=== PATIENT | male | born 1955 | race Caucasian/White ===

== ENCOUNTER 2024-07-05 11:50 | Outpatient (REF) | payer OTHER, SELFPAY ==
[2024-07-05 13:45] LABS: Basophils Percent Auto 0.1 % (0-2); Hematocrit 38.5 % (42.0-52.0); Hemoglobin 13.2 g/dl (14.0-18.0); Imm Gran Abs Auto 0.19 X10*3/uL (0.00-0.03); Imm Gran Pct Auto 1.2 % (0.0-0.4); Lymphocytes Absolute Auto 0.4 X10*3/uL (1.2-4.9); Lymphocytes Percent Auto 2.7 % (20-40); MANUAL DIFF FLAG SCAN; Mean Corpuscular HGB Conc 34.3 g/dl (31.0-36.0); Mean Corpuscular Hemoglobin 31.2 pg (27.0-33.0); Mean Platelet Volume 9.2 fL (9.4-12.4); Monocytes Absolute Auto 0.3 X10*3/uL (0.1-1.2); Monocytes Percent Auto 2.2 % (2-11); Neutrophils Absolute Auto 14.4 x10*3/uL (2.0-8.3); Neutrophils Percent Auto 93.8 % (45-73); Platelet Count 391 X10*3/uL (160-400); Red Blood Count 4.23 X10*6/uL (4.60-5.80); Red Cell Distribution Width 12.6 % (11.0-16.0); SCAN SMEAR FLAG 1; White Blood Count 15.3 X10*3/uL (4.8-10.8)
[2024-07-05 14:11] LABS: Alanine Aminotransferase 17 U/L (0-40); Albumin Level 4.4 g/dL (3.5-5.0); Alkaline Phosphatase 42 U/L (39-117); Anion Gap 14 (12-20); Aspartate Amino Transferase 15 U/L (5-37); Bilirubin Total 0.7 mg/dL (0.0-1.0); Blood Urea Nitrogen 21 mg/dL (9-16); C Reactive Protein 0.28 mg/dL (< or = 0.50); Calcium 9.5 mg/dL (8.4-10.2); Carbon Dioxide 25 mmol/L (22-29); Chloride 97 mmol/L (96-108); Estimated Glomerular Filt Rate 58; Glucose Random 178 mg/dL (60-115); Potassium 4.4 mmol/L (3.3-5.1); Rheumatoid Factor < 13.0 IU/mL (<15.0); Sodium 132 mmol/L (135-145)
[2024-07-05 14:28] LABS: Erythrocyte Sedimentation Rate 5 MM/HR (0-15)
[2024-07-05 14:30] LABS: Thyroid Stimulating Hormone 0.36 uIU/mL (0.32-4.0)
[2024-07-05 14:45] LABS: SLIDE REVIEW VERIFIED
[2024-07-06 12:48] LABS: Lyme Abs Screen <0.90 index
[2024-07-07 19:08] LABS: Immunoglobulin E 532 kU/L (<OR=114)
[2024-07-10 12:53] LABS: A. Phagocytophilum Ab IgG <1:64 (<1:64); A. Phagocytophilum Ab IgM <1:20 (<1:20); E. Chaffeensis Ab IgG <1:64 (<1:64); E. Chaffeensis Ab IgM <1:20 (<1:20)
[2024-07-13 10:02] LABS: ANA Pattern 2 Nuclear, Nucleolar; Anti Nuclear Antibody Pattern Nuclear, Homogeneous; Anti Nuclear Antibody Screen POSITIVE (NEGATIVE); Anti Nuclear Antibody Titer 1:40 titer
== END 2024-07-05 11:51 | disposition home or self-care (01) ==
LOC: HO.MANLDS 11:50
PROVIDERS: Visit Provider Physician Assistant
DX: L28.2 Other prurigo (principal); W61.99XA Other contact with other birds, initial encounter
CPT/HCPCS: 36415; 80053; 82785; 84439; 84443; 85025; 85652; 86038; 86039; 86140; 86431; 86617; 86618; 86666; 87070; 87205

== ENCOUNTER 2024-07-06 09:32 | Outpatient (REF) | payer MEDICARE, SELFPAY ==
[2024-07-14 16:33] LABS: Histamine Plasma <1.5 ng/mL (< OR = 1.8)
== END 2024-07-06 09:33 | disposition home or self-care (01) ==
LOC: HO.LAB 09:32
PROVIDERS: PCP Internal Medicine; Visit Provider Physician Assistant
DX: L28.2 Other prurigo (principal); W61.99XA Other contact with other birds, initial encounter
CPT/HCPCS: 36415; 83088

== ENCOUNTER 2025-06-27 13:41 | Outpatient (REF) | payer MEDICARE, SELFPAY ==
--- OUTSIDE RECORDS SUMMARY | 2025-06-27 14:07 | XMS_ITS | Encounter Summary ---
Author Organization [facility] Address [address] [facility] [address] [place] [id number] Phone Care Team Providers Care Regulatory Lead Name Role Phone Troy Dias Primary Care Provider [phone] Encounter Details Date Type Department Care Team (Late st Contact Info) Description 02/28/2025 Procedure Pass OR Admitting Dept - Virtual Department [address] [place] [address] Social History Tobacco Use Types Packs/Day Years Used Date Smoking Tobacco: Never Smokeless Tobacco: Never Alcohol Use Standard Drinks/Week Comments Yes 5 (1 standard drink = 0.6 oz pur e alcohol) Education Answer Date Recorded Are you interested in more education? Not on aleksandar e 03/19/2023 Are you concerned about learning? Not on file 03/19/2023 No 03/19/2023 No 03/19/2023 Digital Access Answer Date Recorded No 04/17/2023 No 04/17/2023 Reliable internet access at home? Not on file 04/17/2023 Device with a working camera? Not on file Sex and Gender Information Value Date Recorded Sex Assigned at Not on file Legal Sex Male 9:58 PM EDT Gender Identity Not on file Sexual Orientation Not on file documented as of this encounter Plan of Treatment Upcoming Encounters Date Type Department Care Team (Late st Contact Info) Description 06/17/2026 11:20 AM EDT Office Visit [facility] [address] [facility] [address]rd Floor, [address] [place] [address] Tyrel Cook MD [address] [place] [address], [address] [place] [address] [email or web address] documented as of this encounter Visit Diagnoses Not on filedocumented in this encounter Care Teams Regulatory Lead Relationship Specialty Start Date End Date Troy Dias DO [email or web address] PCP - General Internal Medicine 04/03/24 documented as of this encounter Additional Source Comments The information contained in this document represents components of the legal health record. It is not the complete legal health record.[facility]
[2025-06-27 18:26] LABS: MANUAL DIFF FLAG NO
[2025-06-27 18:27] LABS: Hematocrit 29.2 % (42.0-52.0); Hemoglobin 10.5 g/dl (14.0-18.0); Imm Gran Abs Auto 0.03 X10*3/uL (0.00-0.03); Imm Gran Pct Auto 0.5 % (0.0-0.4); Lymphocytes Absolute Auto 0.7 X10*3/uL (1.2-4.9); Mean Corpuscular HGB Conc 36.0 g/dl (31.0-36.0); Mean Corpuscular Hemoglobin 32.3 pg (27.0-33.0); Mean Corpuscular Volume 89.8 fL (80.0-98.0); NRBC Abs Auto 0.000 X10*3/uL (0.0-0.012); NRBC Pct Auto 0.0 /100WBC (0.0-0.2); Platelet Count 345 X10*3/uL (160-400); Red Blood Count 3.25 X10*6/uL (4.60-5.80); White Blood Count 6.2 X10*3/uL (4.8-10.8)
[2025-06-27 18:52] LABS: Alanine Aminotransferase 15 U/L (0-40); Albumin Level 4.2 g/dL (3.5-5.0); Alkaline Phosphatase 63 U/L (39-117); Anion Gap 13 (12-20); Aspartate Amino Transferase 24 U/L (5-37); Blood Urea Nitrogen 18 mg/dL (9-16); Calcium 8.5 mg/dL (8.4-10.2); Carbon Dioxide 25 mmol/L (22-29); Chloride 100 mmol/L (96-108); Estimated Glomerular Filt Rate > 60; Potassium 4.2 mmol/L (3.3-5.1); Sodium 134 mmol/L (135-145); Total Protein 6.5 g/dL (6.5-8.0)
[2025-06-27 19:08] LABS: Free T4 (Free Thyroxine) 1.01 ng/dL (0.71-1.85); Thyroid Stimulating Hormone 1.35 uIU/mL (0.32-4.0)
[2025-06-28 07:11] LABS: Hemoglobin A1C 118.9272 umol/L; Total Hemoglobin (HGBA1C) 2898.4605 umol/L
== END 2025-06-27 13:42 | disposition home or self-care (01) ==
LOC: HO.MANLDS 13:41
PROVIDERS: Visit Provider Physician Assistant
DX: R34 Anuria and oliguria (principal); Z13.1 Encounter for screening for diabetes mellitus
CPT/HCPCS: 36415; 80053; 83036; 84439; 84443; 85025; 85652; 86140

== ENCOUNTER 2025-07-03 10:14 | Outpatient (REF) | payer MEDICARE, SELFPAY ==
--- OUTSIDE RECORDS SUMMARY | 2025-07-03 11:15 | XMS_ITS | Encounter Summary ---
Author Organization [facility] Address [address] [facility] [address] [place] [address] Phone Care Team Providers Care Drafter Assistant Name Role Phone Troy Dias Primary Care Provider Encounter Details Date Type Department Care Team (Late st Contact Info) Description 02/28/2025 Procedure Pass OR Admitting Dept - Virtual Department [address] [place] [phone] Social History Tobacco Use Types Packs/Day Years [...] Care Team (Late st Contact Info) Description 06/27/2025 Procedure Pass [facility], [facility] [address] [place] [address] 07/07/2025 12:00 PM EDT Appointment [facility] [address] [place] [address] Maddy Singer PA [address] [place] [address] [place] [address] 06/17/2026 11:20 AM EDT Office Visit [facility] [address] [facility] 3rd Floor, [address] [place] [address] Tyrel Cook MD [address] [facility], [address] [place] [address] documented as of this encounter Visit Diagnoses Not on filedocumented in this encounter Care Teams Drafter Assistant Relationship Specialty Start Date End Date Troy Dias DO PCP - General Internal Medicine 04/03/24 documented as of this encounter Additional Source Comments The information contained in this document represents components of the legal health record. It is not the complete legal health record.[facility]
[2025-07-03 13:19] LABS: MANUAL DIFF FLAG NO
[2025-07-03 13:31] LABS: Hematocrit 30.4 % (42.0-52.0); Hemoglobin 10.7 g/dl (14.0-18.0); Imm Gran Abs Auto 0.04 X10*3/uL (0.00-0.03); Imm Gran Pct Auto 0.6 % (0.0-0.4); Lymphocytes Absolute Auto 0.7 X10*3/uL (1.2-4.9); Mean Corpuscular HGB Conc 35.2 g/dl (31.0-36.0); Mean Corpuscular Hemoglobin 32.6 pg (27.0-33.0); Mean Corpuscular Volume 92.7 fL (80.0-98.0); NRBC Abs Auto 0.000 X10*3/uL (0.0-0.012); NRBC Pct Auto 0.0 /100WBC (0.0-0.2); Platelet Count 341 X10*3/uL (160-400); Red Blood Count 3.28 X10*6/uL (4.60-5.80); White Blood Count 6.6 X10*3/uL (4.8-10.8)
[2025-07-03 14:10] LABS: Alanine Aminotransferase 14 U/L (0-40); Albumin Level 4.0 g/dL (3.5-5.0); Alkaline Phosphatase 62 U/L (39-117); Anion Gap 14 (12-20); Aspartate Amino Transferase 22 U/L (5-37); Blood Urea Nitrogen 27 mg/dL (9-16); Calcium 8.6 mg/dL (8.4-10.2); Carbon Dioxide 23 mmol/L (22-29); Chloride 101 mmol/L (96-108); Estimated Glomerular Filt Rate > 60; Iron 64 mcg/dL (45-160); Magnesium 2.2 mg/dL (1.6-2.6); Percent Iron Saturation 28 % (15-50); Potassium 3.9 mmol/L (3.3-5.1); Sodium 134 mmol/L (135-145); Total Iron Binding Capacity 230 mcg/dL (228-428); Total Protein 6.3 g/dL (6.5-8.0); Unsaturated Iron Binding 166 ug/dL
== END 2025-07-03 10:15 | disposition home or self-care (01) ==
LOC: HO.MANLDS 10:14
PROVIDERS: Visit Provider Physician Assistant
DX: E87.1 Hypo-osmolality and hyponatremia (principal); E61.1 Iron deficiency
CPT/HCPCS: 36415; 80053; 83540; 83735; 85025

== ENCOUNTER 2025-07-08 | Outpatient (REF) | payer MEDICARE, SELFPAY ==
--- OUTSIDE RECORDS SUMMARY | 2025-07-07 11:40 | XMS_ITS | Encounter Summary ---
Author Organization [facility] Address [address] [facility] [address] [place] [phone] Phone Care Team Providers Care Building Surveyor Name Role Phone KareniggyTroy DO Primary Care Provider [phone] Reason for Referral * MRI/CAT Scan - Closed Specialty Diagnoses / Procedures Referred By Contac t Referred To Contact Radiology Diagnoses Abnormal weight loss Procedures CT Abdomen/Pelvis CHG CT SCAN,ABDOMENT AND PELVIS,W/O CONTRAST CHG CT SCAN,ABDOMENT AND PELVIS,W CONTRAST Maddy Singer PA [address] [facility] [place] [address] [place] [address] Phone: tel: fax: Referral ID Status Reason Start Date Expiration Date Visits Re quested Visits Authorized [id number] Closed 06/27/2025 08/26/2025 1 1 Reason for Visit * MRI/CAT Scan - Closed Specialty Diagnoses / Procedures Referred By Contac t Referred To Contact Radiology Diagnoses Abnormal weight loss Procedures CT Abdomen/Pelvis CHG CT SCAN,ABDOMENT AND PELVIS,W/O CONTRAST CHG CT SCAN,ABDOMENT AND PELVIS,W CONTRAST Maddy Singer PA [address] [facility] [place] [address] [place] [address] Phone: tel: fax: Referral ID Status Reason Start Date Expiration Date Visits Re quested Visits Authorized [id number] Closed 06/27/2025 08/26/2025 1 1 Encounter Details Date Type Department Care Team (Latest Contact Info) Description 07/07/2025 11:40 AM EDT - 07/07/2025 11:59 PM EDT Hospital Encounter [facility], Ct Scan - [facility] [address] [place] [address] Maddy Singer PA [address] [place] [address] [place] [address] Arrived Discharge Disposition: Home or Self Care Social History Tobacco Use Types Packs/Day Years [...] on file documented as of this encounter Medications at Time of Discharge amLODIPine (NORVASC) 5 MG tablet Take 1 tablet (5 mg total) by mouth daily. 90 tablet 3 12/17/2022 ascorbic acid, vitamin C, (VITAMIN C) 500 mg Chew Take by mouth daily. b complex vitamins capsule Take 1 capsule by mouth daily. cyanocobalamin, vitamin B-12, 100 MCG tablet Take 100 mcg by mouth daily. gabapentin (NEURONTIN) 100 MG capsule Take 100 mg by mouth as needed. 05/24/2024 hydrALAZINE (APRESOLINE) 50 MG tablet Take 50 mg by mouth 2 (two) times a day. 06/29/2022 hydroCHLOROthiazi de (HYDRODIURIL) 25 MG tablet Take 25 mg by mouth daily. lisinopril (PRINIVIL,ZESTRIL ) 40 MG tablet Take 40 mg by mouth daily. multivitamin-mine rals-lutein (CENTRUM SILVER) Tab Take 1 tablet by mouth daily. naproxen sodium (ALEVE) 220 MG tablet Take 440 mg by mouth as needed. traMADoL (ULTRAM) 50 mg tablet Take 50 mg by mouth as needed. 03/07/2024 vit C/E/Zn/coppr/lute in/zeaxan ([facility]-2 ORAL) Take 1 capsule by mouth 2 (two) times a day. 02/07/2025 zinc 50 mg Tab tablet Take 50 mg by mouth daily. documented as of this encounter Plan of Treatment Upcoming Encounters Date Type Department Care Team (Late st Contact Info) Description 06/27/2025 Procedure Pass [address] [address] 07/27/2025 7:40 AM EDT Appointment [address] [address] Maddy Singer PA [address] [place] [address] 06/17/2026 11:20 AM EDT Office Visit [facility] [address] [place] [address] 3rd Floor, [address] [place] [address] Tyrel Cook MD [address] [place] [address] [email or web address] [email or web address] Results Name Type Priority Associated Diagnoses Date /Time CT Abdomen/Pelvis Imaging Routine Abnormal weight loss 07/07/2025 12:24 PM EDT Scheduled Orders Name Type Priority Associated Diagnoses Orde r Schedule CT Abdomen/Pelvis Imaging Routine Abnormal weight loss As Needed for 1 Occurrences starting 07/07/2025 until 07/07/2025 documented as of this encounter Visit Diagnoses Diagnosis Abnormal weight loss Loss of weight documented in this encounter Administered Medications Inactive Administered Medications - up to 3 most recent administrations Medication Order MAR Action Action Date Dose Rate Site iohexoL (OMNIPAQUE) 9 mg iodine/mL 500 mL 500 mL, Oral, Once as needed, pre procedure/treatment, Starting on 07/07/25 at 1152, For 1 dose, Procedural Contrast/Med Active Now, Administer 30 minutes prior to exam. Given 07/07/2025 11:53 AM EDT 500 mL documented in this encounter Care Teams Building Surveyor Relationship Specialty Start Date End Date Troy Dias DO [email or web address] PCP - General Internal Medicine 04/03/24 documented as of this encounter Additional Source Comments The information contained in this document represents components of the legal health record. It is not the complete legal health record.[facility]
[2025-07-09 13:44] LABS: Appearance Urine Clear; Glucose Urine UA Negative (Negative); PH 7.0 (5.0-9.0); Specific Gravity - Urine <= 1.005 (1.005-1.025)
== END 2025-07-08 00:01 | disposition home or self-care (01) ==
LOC: HO.LNP
PROVIDERS: Visit Provider Physician Assistant
DX: E61.1 Iron deficiency (principal)
CPT/HCPCS: 81001

== ENCOUNTER 2025-07-09 13:33 | Outpatient (REF) | payer MEDICARE, SELFPAY ==
[2025-07-09 14:06] LABS: FIT Date 1 08/16/25; FIT1 NEGATIVE (NEGATIVE)
[2025-07-09 14:07] LABS: FIT Date 2 08/18/25; FIT Int Ctl YES; FIT Lot M502755; FIT2 NEGATIVE (NEGATIVE)
== END 2025-07-09 13:34 | disposition home or self-care (01) ==
LOC: HO.LNP 13:33
PROVIDERS: Visit Provider Physician Assistant
DX: E61.1 Iron deficiency (principal)
CPT/HCPCS: 82274

== ENCOUNTER 2025-10-16 11:02 | Outpatient (REF) | payer MEDICARE, SELFPAY ==
[2025-10-16 13:27] LABS: MANUAL DIFF FLAG NO
[2025-10-16 13:33] LABS: Hematocrit 34.3 % (42.0-52.0); Hemoglobin 11.5 g/dl (14.0-18.0); Imm Gran Abs Auto 0.03 X10*3/uL (0.00-0.03); Imm Gran Pct Auto 0.3 % (0.0-0.4); Lymphocytes Absolute Auto 0.8 X10*3/uL (1.2-4.9); Mean Corpuscular HGB Conc 33.5 g/dl (31.0-36.0); Mean Corpuscular Hemoglobin 31.0 pg (27.0-33.0); Mean Corpuscular Volume 92.5 fL (80.0-98.0); NRBC Abs Auto 0.000 X10*3/uL (0.0-0.012); NRBC Pct Auto 0.0 /100WBC (0.0-0.2); Platelet Count 428 X10*3/uL (160-400); Red Blood Count 3.71 X10*6/uL (4.60-5.80); White Blood Count 9.0 X10*3/uL (4.8-10.8)
[2025-10-16 13:59] LABS: Iron 88 mcg/dL (45-160); Percent Iron Saturation 33 % (15-50); Total Iron Binding Capacity 267 mcg/dL (228-428); Unsaturated Iron Binding 179 ug/dL
[2025-10-16 14:06] LABS: Ferritin 187 ng/mL (20-250); Thyroid Stimulating Hormone 1.90 uIU/mL (0.32-4.0)
[2025-10-16 14:23] LABS: Vitamin B12 > 2000 pg/mL (200-900)
--- OUTSIDE RECORDS SUMMARY | 2025-10-16 14:33 | XMS_ITS | Encounter Summary ---
Author Organization [facility] Address [address] [facility] [address] [place] [address] Phone Care Team Providers Care Rail Track Maintainer Name Role Phone Troy Dias Primary Care Provider [phone] Encounter Details Date Type Department Care Team (Late st Contact Info) Description 07/30/2025 Procedure Pass [facility], [address] [address] Social History Tobacco Use Types Packs/Day Years [...] Description 06/17/2026 11:20 AM EDT Office Visit [facility] [address] [facility] 3rd Floor, [address] [place] [address] Tyrel Cook MD [address] [place] [address], [address] [place] [address] [email or web address] documented as of this encounter Visit Diagnoses Not on filedocumented in this encounter Care Teams Rail Track Maintainer Relationship Specialty Start Date End Date Troy Dias DO [email or web address] PCP - General Internal Medicine 04/03/24 documented as of this encounter Additional Source Comments The information contained in this document represents components of the legal health record. It is not the complete legal health record.[facility]
--- OUTSIDE RECORDS SUMMARY | 2025-10-16 14:33 | XMS_ITS | Clinical Summary ---
Author Organization [facility] Address [address] [place] [id number] Phone Care Team Providers Care Storm Door Maker Name Role Phone Troy Dias Primary Care Provider [phone] Allergies Active Allergy Reactions Criticality Noted Date Comments Spironolactone Vomiting Low 09/22/2022 Medications naproxen sodium (ALEVE) 220 MG tablet Take 440 mg by mouth as needed. Active multivitamin-mi nerals-lutein (CENTRUM SILVER) Tab Take 1 tablet by mouth daily. Active b complex vitamins capsule Take 1 capsule by mouth daily. Active lisinopril (PRINIVIL,ZESTR IL) 40 MG tablet Take 40 mg by mouth daily. Active hydroCHLOROthia zide (HYDRODIURIL) 25 MG tablet Take 25 mg by mouth daily. Active cyanocobalamin, vitamin B-12, 100 MCG tablet Take 100 mcg by mouth daily. Active ascorbic acid, vitamin C, (VITAMIN C) 500 mg Chew Take by mouth daily. Active zinc 50 mg Tab tablet Take 50 mg by mouth daily. Active hydrALAZINE (APRESOLINE) 50 MG tablet Take 50 mg by mouth 2 (two) times a day. 06/29/2022 Active amLODIPine (NORVASC) 5 MG tablet Take 1 tablet (5 mg total) by mouth daily. 90 tablet 3 12/17/2022 Active traMADoL (ULTRAM) 50 mg tablet Take 50 mg by mouth as needed. 03/07/2024 Active gabapentin (NEURONTIN) 100 MG capsule Take 100 mg by mouth as needed. 05/24/2024 Active vit C/E/Zn/coppr/ajay tein/zeaxan (E[facility]-2 ORAL) Take 1 capsule by mouth 2 (two) times a day. 02/07/2025 Active docusate sodium (COLACE) 100 MG capsule Take 100 mg by mouth 2 (two) times a day. Active fluticasone propionate (FLONASE) 50 mcg/actuation nasal spray SHAKE LIQUID AND USE 1 SPRAY IN EACH NOSTRIL EVERY DAY Active Active Problems Problem Noted Date Diagnosed Date Right groin pain 09/11/2025 S/P bilateral inguinal herniorrhaphy 03/14/2025 Acute urticaria 06/30/2024 Degeneration of lumbar intervertebral disc 05/01 Lumbago with sciatica 03/07/2024 Bulge of cervical disc without myelopathy 2023 Onychomycosis due to dermatophyte 08/06/2023 Seborrheic dermatitis 08/06/2023 Seborrheic keratosis 08/06/2023 Benign essential hypertension 10/27/2022 Assessment & Plan (08/18/2023 1:23 PM EDT): BP elevated in office today. We reviewed an extensive log of his home blood pressures, which show consistent readings less than 120 systolic. He follows a low sodium diet and is active, which I encouraged him to continue. Continue above medications at current doses. Assessment & Plan (10/27/2022 3:25 PM EST): BP in office today 136/80 (goal < 130/80). He is tolerating the addition of amlodipine (was already on hydralazine, HCTZ and lisinopril) without side effects and actually feels better than he has in years. We reviewed the normal lab work that was ordered at his last appointment. Because he is so close to goal BP and feeling so well, I'm hesitant to increase his amlodipine dose further. Instead, I've asked him to check his BP a few times weekly at home between now and his next follow up visit. If he is persistently > 130/80, he will let our office know and we will increase amlodipine at that point. Allergic rhinitis 09/11/2022 Resolved Problems Problem Noted Date Diagnosed Date Resolved Date Non-recurrent bilateral ingu inal hernia without obstruction or gangrene 02/02/2025 03/14/20 25 COVID-19 07/12/2024 03/14/2025 Generalized rash 07/11/2024 03/14/2025 Left inguinal hernia 04/26/2024 025 Encounters Date Type Department Care Team Description 09/11/2025 2:00 PM EDT Office Visit [facility] [address] [place] [address] Sweetie Hammond MD Right groin pain (Primary Dx) 08/19/2025 1:28 PM EDT - 08/19/2025 11:59 PM EDT Hospital Encounter [address] [address] Maddy Singer PA Discharge Disposition: Home or Self Care 08/05/2025 2:50 PM EDT - 08/05/2025 11:59 PM EDT Hospital Encounter [address] [address] Maddy Singer PA Discharge Disposition: Home or Self Care 07/30/2025 Procedure Pass [address] [address] 07/30/2025 Procedure Pass [address] [address] 07/30/2025 Transcribe Orders Virtual Department [address] [place] [id number] Maddy Singer PA Contusion of abdominal wall, initial encounter (Primary Dx) 07/27/2025 7:19 AM EDT - 07/27/2025 11:59 PM EDT Hospital Encounter [address] [address] Maddy Singer PA Discharge Disposition: Home or Self Care 07/24/2025 Ancillary Orders [facility],Outside Imaging [address] [place] [address] Unknown, [place], 07/17/2025 2:01 PM EDT - 07/17/2025 11:59 PM EDT Hospital Encounter [facility] [address] [address] Maddy Singer PA Discharge Disposition: Home or Self Care 06/27/2025 Procedure Pass [facility], [facility] [address] [place] [address] from Last 3 Months Immunizations Immunization Administration Dates Next Due COVID-19 (Pre-09/13) Pfizer Vaccine, mRNA, PF 09/05/2021,03/03/2021,02/10/2021 INFLUENZA, SPLIT VIRUS, TRIVALENT PF 07/24/2020 INFLUENZA, SPLIT VIRUS, TRIV ALENT W/ PRESERVATIVE IM 10/22/2012 Influenza High-Dose Quadriva lent Preservative Free IM 08/24/2021 Influenza High-Dose Trivalen t Preservative Free IM 08/22/2019 Influenza Quadrivalent Adjuv anted Preservative Free IM 08/01/2023,09/28/2022 Influenza Quadrivalent w/ Pr eservative IM 08/24/2021,07/24/2020,08/22/2019,08/18 Influenza, Unspecified Formulation 08/21,07/27/2023,09/28/2022,08/18,08/26/2017,09/05/2011,09/26/2010 Pneumococcal conjugate PCV13 08/22/2019,03/13/20 19 Pneumococcal polysaccharide PPSV23 10/11/2020 RSV Vaccine (monovalent, adjuvanted) 08/17/2023 Td, unspecified formulation 12/01/2006 Tdap 04/03/2024,01/22/2016 Zoster live 12/26/2014 Zoster recombinant 06/12/2022,01/09/2022 Zoster unspecified formulation 06/12/2022,2021 Social History Tobacco Use Types Packs/Day Years Used Date Smoking Tobacco: Never Smokeless Tobacco: Never Tobacco Cessation:Counseling Given: Not Answered Alcohol Use Standard Drinks/Week Comments Yes 5 [...] on file Sexual Orientation Not on file Last Filed Vital Signs Vital Sign Reading Time Taken Comments Blood Pressure 148/80 09/11/2025 1:52 PM EDT Pulse 92 09/11/2025 1:52 PM EDT Temperature 36.6 C (97.8 F) 09/11/2025 1:52 PM EDT Respiratory Rate 17 02/28/2025 1:45 PM EDT Oxygen Saturation 99% 09/11/2025 1:52 PM EDT Inhaled Oxygen Concentration - - Weight 72.6 kg (160 lb) 08/19/2025 1:46 PM EDT Height 172.7 cm (5' 8 ) 08/19/2025 1:46 PM EDT Body Mass Index 24.33 08/19/2025 1:46 PM EDT Plan of Treatment Upcoming Encounters Date Type Department Care Team (Late st Contact Info) Description 06/17/2026 11:20 AM EDT Office Visit [facility] [address] [place] [address] 3rd Floor, [address] [place] [address] Brennen Cook MD [address] [place] [address], [address] [address] [email or web address] Health Maintenance Due Date Last Done Comments DEPRESSION SCREENING 1965 HEPATITIS C SCREENING 1971 COLOGUARD 1998 FIT TEST 1998 FOBT 1998 SIGMOIDOSCOPY 1998 VIRTUAL COLONOSCOPY 1998 INFLUENZA VACCINE (#1) 2025 , 08/01/2023, 07/27/2023, Additional history exists COVID-19 VACCINE ( season) 2025 09/05/2021, 03/03/2021, 02/10/2021 BLOOD PRESSURE 03/12/2026 09/11/2025 CREATININE LEVEL 07/17/2026 07/17/2025, , 09/23/2022 POTASSIUM LEVEL 07/17/2026 07/17/2025, 01/21, 09/23/2022 LIPID PANEL 02/13/2028 02/12/2023, 09/23/2022 COLONOSCOPY 12/20/2029 12/20/2019 COLORECTAL CANCER SCREENING 12/20/2029 Adult Td,Tdap Booster 04/03/2034 04/03/2024 , 01/22/2016, 12/01/2006 PNEUMOCOCCAL VACCINES (50+ years) Completed 10/11/2020, 08/22/2019, 03/13/2019 ZOSTER VACCINES Completed 06/12/2022, 05/23, 01/09/2022, Additional history exists RSV VACCINE Completed 08/17/2023 SMOKING STATUS SCREENING (Once After 26 Yrs) Completed 09/11/2025 HEPATITIS A VACCINES Aged Out No long er eligible based on patient's age to complete this topic HIB VACCINES Aged Out No longer eligi ble based on patient's age to complete this topic MENINGOCOCCAL VACCINES (ACWY) Aged Out No longer eligible based on patient's age to complete this topic MENINGOCOCCAL VACCINES (B) Aged Out N o longer eligible based on patient's age to complete this topic Medical Devices Implanted Type Area Dressing Room Porter Device Identifier Shelf Expiration Date Model / Serial / Lot Graft Mesh 10.5cm 16cm 3dmax Polypropylene Monofilament Patch Laparoscopy Hernia Repair Right - [id number] Implanted:Qty: 1 on 02/28/2025 by Sweetie Hammond MD at [facility] STANDARD Right: Groin [employer] [id number] 07/19/2029 [id number] / / [id number] Graft Mesh 10.5cm 16cm 3dmax Polypropylene Monofilament Patch Laparoscopy Hernia Repair Left - [id number] Implanted:Qty: 1 on 02/28/2025 by Sweetie Hammond MD at [facility] Left: Groin [employer] [id number] 07/19/2029 [id number] / / [id number] Procedures Procedure Name Priority Date/Time Associated Diagnosis Comments MRI ABDOMEN WITH AND WITHOUT CONTRAST Routine 08/19/2025 4:13 PM EDT Contusion of abdominal wall, initial encounter MRI PELVIS WITH AND WITHOUT CONTRAST Routine 08/05/2025 4:59 PM EDT Contusion of abdominal wall, initial encounter MRI LUMBAR SPINE (NEURO) WITHOUT CONTRAST Routine 07/27/2025 8:25 AM EDT Other intervertebral disc displacement, lumbar region CBC AND DIFFERENTIAL Routine 07/17/2025 2:02 PM EDT 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 No suspicious liver lesions. 2. 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 Follow-up MRI recommended in 2 years to ensure stability. Narrative 08/21/2025 3:21 PM EDT MRI ABDOMEN WITH AND WITHOUT CONTRAST Referring clinician's provided indication for this examination in Epic: Outside Radiology Order; hematoma left inguinal TECHNIQUE: Multiplanar MR imaging of the abdomen was performed using T1, T2, fat saturated, and diffusion weighted techniques. Dynamic multiphase imaging was also performed after administration of an intravenous gadolinium contrast agent. COMPARISON: CT ABDOMEN/PELVIS WITHOUT CONTRAST FINDINGS: Lower Chest: No effusions. Liver: No suspicious lesions. 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 12 mm simple cyst in the right hepatic dome. 11 mm central right lobe hepatic hemangioma (6:15). Biliary: No biliary ductal dilatation. Spleen: No splenomegaly or focal lesion. Pancreas: 6 mm simple pancreatic tail cyst (7:17). No solid mass or pancreatic ductal dilatation. Adrenal Glands: No nodules. Kidneys/Ureters: No solid mass or hydronephrosis. Small simple bilateral renal cysts. Bowel: Colonic diverticulosis. Normal appendix. Peritoneum/Retroperitoneum: No masses or fluid. Lymph Nodes: No lymphadenopathy. Vessels: No abdominal aortic aneurysm. Patent portal vein. Bones/Soft Tissues: Degenerative changes of the spine. No suspicious marrow replacing lesions. Dedicated pelvic MRI was acquired separately, 08/05/2025. Mildly trabeculated bladder. Procedure Note Jeromy Morrow MD - 08/21/2025 MRI ABDOMEN WITH AND WITHOUT CONTRAST Referring clinician's provided indication for this examination in Epic:Outside Radiology Order; hematoma left inguinal TECHNIQUE: Multiplanar MR imaging of the abdomen was performed using T1,T2, fat saturated, and diffusion weighted techniques. Dynamic multiphaseimaging was also performed after administration of an intravenousgadolinium contrast agent. COMPARISON: CT ABDOMEN/PELVIS WITHOUT CONTRAST FINDINGS: Lower Chest: No effusions. Liver: No suspicious lesions. Macroscopic fat-containing subcapsular lesion in segment 8 measuring 20 mm(1001:14), unchanged from prior CT, likely a lipoma Jun's capsule. 12mm simple cyst in the right hepatic dome. 11 mm central right lobe hepatichemangioma (6:15). Biliary: No biliary ductal dilatation. Spleen: No splenomegaly or focal lesion. Pancreas: 6 mm simple pancreatic tail cyst (7:17). No solid mass orpancreatic ductal dilatation. Adrenal Glands: No nodules. Kidneys/Ureters: No solid mass or hydronephrosis. Small simple bilateralrenal cysts. Bowel: Colonic diverticulosis. Normal appendix. Peritoneum/Retroperitoneum: No masses or fluid. Lymph Nodes: No lymphadenopathy. Vessels: No abdominal aortic aneurysm. Patent portal vein. Bones/Soft Tissues: Degenerative changes of the spine. No suspiciousmarrow replacing lesions. Dedicated pelvic MRI was acquired separately, 08/05/2025. Mildly trabeculated bladder. IMPRESSION: 1. No suspicious liver lesions. 2. 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 us Maddy RUFFIN IMG MR ABDOMEN Final Resul t * MRI PELVIS WITH AND WITHOUT CONTRAST (08/05/2025 4:59 PM EDT) Anatomical Region Laterality Modality Pelvis Magnetic Resonan ce 08/06/2025 2:15 PM EDT Impressions 08/06/2025 2:23 PM EDT 1. Postoperative changes from following all hernia repair. Soft tissue nodules in the inguinal canals bilaterally measuring 0.8 cm with intrinsic T1 hyperintensity suggests hemorrhagic/proteinaceous contents and likely represents the sequela of postoperative change such as small hematoma or developing fibrosis. Correlate with physical exam. 2. If symptoms persist, short-term follow-up imaging to ensure stability or resolution is recommended. 3. Degenerative changes partially visualized in the lower lumbar spine. Narrative 08/06/2025 2:23 PM EDT MRI PELVIS WITH AND WITHOUT CONTRAST Referring clinician's provided indication for this examination in Epic: Outside Radiology Order; hematoma left inguinal TECHNIQUE: Multiplanar MR imaging of the pelvis was performed using T1, T2, and diffusion weighted techniques. Dynamic multiphase imaging was also performed after administration of an intravenous gadolinium contrast agent. COMPARISON: CT abdomen/pelvis 07/07/2025 FINDINGS: Bladder: Mildly thick-walled urinary bladder with scattered diverticula. Bowel: No dilatation or wall thickening. Other pelvic organs: No mass. Peritoneum: No suspicious free fluid in the pelvis. Lymph Nodes: No suspicious enlarged lymph nodes in the pelvis. Vessels: Patent pelvic vasculature. Bones/Soft Tissues: No focal marrow replacing lesions. Degenerative disc changes at L4-5 and L5-S1 partially visualized. Postoperative changes from bilateral inguinal hernia repair. Soft tissue nodule noted in the anterior aspect of the left inguinal canal (12:108) measuring 0.8 cm. This is T1 hyperintense suggesting hemorrhagic or proteinaceous contents. No definite enhancement. Similar nodularity in the right inguinal canal (12:97). Procedure Note Ziyad Sullivan MD - 08/06/2025 MRI PELVIS WITH AND WITHOUT CONTRAST Referring clinician's provided indication for this examination in Epic:Outside Radiology Order; hematoma left inguinal TECHNIQUE: Multiplanar MR imaging of the pelvis was performed using T1,T2, and diffusion weighted techniques. Dynamic multiphase imaging was alsoperformed after administration of an intravenous gadolinium contrastagent. COMPARISON: CT abdomen/pelvis 07/07/2025 FINDINGS: Bladder: Mildly thick-walled urinary bladder with scattered diverticula. Bowel: No dilatation or wall thickening. Other pelvic organs: No mass. Peritoneum: No suspicious free fluid in the pelvis. Lymph Nodes: No suspicious enlarged lymph nodes in the pelvis. Vessels: Patent pelvic vasculature. Bones/Soft Tissues: No focal marrow replacing lesions. Degenerative discchanges at L4-5 and L5-S1 partially visualized. Postoperative changes from bilateral inguinal hernia repair. Soft tissue nodule noted in the anterior aspect of the left inguinal canal(12:108) measuring 0.8 cm. This is T1 hyperintense suggesting hemorrhagicor proteinaceous contents. No definite enhancement. Similar nodularity inthe right inguinal canal (12:97). IMPRESSION: 1. Postoperative changes from following all hernia repair. Soft tissuenodules in the inguinal canals bilaterally measuring 0.8 cm with intrinsicT1 hyperintensity suggests hemorrhagic/proteinaceous contents and likelyrepresents the sequela of postoperative change such as small hematoma ordeveloping fibrosis. Correlate with physical exam. 2. If symptoms persist, short-term follow-up imaging to ensure stabilityor resolution is recommended. 3. Degenerative changes partially visualized in the lower lumbar spine. us Maddy RUFFIN IMG MR PELVIS Final Resul t * MRI LUMBAR SPINE (NEURO) WITHOUT CONTRAST (07/27/2025 8:25 AM EDT) Anatomical Region Laterality Modality L-spine Magnetic Resonan ce 07/30/2025 9:22 AM EDT Impressions 07/30/2025 9:33 AM EDT 1. Interval resolution of the previously identified left foraminal extraforaminal disc extrusion component at L4-5. Interval progression in degree of asymmetric intervertebral disc height loss at left L4-5 and right L5-S1. Severe neural foraminal narrowing at right L5-S1 appears worse from prior study. Narrative 07/30/2025 9:33 AM EDT MRI LUMBAR SPINE (NEURO) WITHOUT CONTRAST Referring clinician's provided indication for this examination in Epic: Outside Radiology Order; lumbar disc herniation TECHNIQUE: MRI LUMBAR SPINE (NEURO) WITHOUT CONTRAST Multi-sequence, multi-planar MRI of the lumbar spine was performed without intravenous contrast. COMPARISON: MR lumbar spine May 10, 2024 FINDINGS: LUMBAR SPINE: Alignment and Vertebrae: There is a mild dextroconvex lower lumbar curvature apex at L4-5. No lumbar compression fracture or spondylolisthesis. Marrow: No bone marrow replacing lesion. Discs and Endplates: There is asymmetric intervertebral disc height loss at left L4-5 and right L5-S1 worse from prior study. There is interval progression in degree of degenerative endplate change L4-5 and L5-S1 with marrow edema at left L4-5 and right L5-S1. There is marrow edema related to facet arthropathy at right L5-S1. There is mild intervertebral disc height loss at L1-2 similar the prior study. Conus: The conus terminates at the L1 level. The conus appears normal in signal intensity. Soft Tissues: Normal. No prevertebral edema. Other Findings: None. Findings by level: T12-L1: No spinal canal or neural foraminal narrowing. L1-L2: There is a disc bulge without spinal canal or neural foraminal narrowing. L2-L3: No spinal canal or neural foraminal narrowing. L3-L4: No spinal canal or neural foraminal narrowing. L4-L5: There is left subarticular narrowing due to disc bulge and facet arthropathy similar the prior study. No central spinal canal or right neural foraminal narrowing. There is moderate left neural foraminal narrowing improved from the prior study due to interval resolution of the previously identified left foraminal and extraforaminal disc extrusion component. L5-S1: There is a disc bulge and facet arthropathy without spinal canal or left neural foraminal narrowing. There is severe right neural foraminal narrowing worse from prior study. Procedure Note José Guzmán DO - 07/30/2025 MRI LUMBAR SPINE (NEURO) WITHOUT CONTRAST Referring clinician's provided indication for this examination in Epic:Outside Radiology Order; lumbar disc herniation TECHNIQUE: MRI LUMBAR SPINE (NEURO) WITHOUT CONTRAST Multi-sequence, multi-planar MRI of the lumbar spine was performed withoutintravenous contrast. COMPARISON: MR lumbar spine May 10, 2024 FINDINGS: LUMBAR SPINE: Alignment and Vertebrae: There is a mild dextroconvex lower lumbarcurvature apex at L4-5. No lumbar compression fracture orspondylolisthesis. Marrow: No bone marrow replacing lesion. Discs and Endplates: There is asymmetric intervertebral disc height lossat left L4-5 and right L5-S1 worse from prior study. There is intervalprogression in degree of degenerative endplate change L4-5 and L5-S1 withmarrow edema at left L4-5 and right L5-S1. There is marrow edema relatedto facet arthropathy at right L5-S1. There is mild intervertebral discheight loss at L1-2 similar the prior study. Conus: The conus terminates at the L1 level. The conus appears normal insignal intensity. Soft Tissues: Normal. No prevertebral edema. Other Findings: None. Findings by level: T12-L1: No spinal canal or neural foraminal narrowing. L1-L2: There is a disc bulge without spinal canal or neural foraminalnarrowing. L2-L3: No spinal canal or neural foraminal narrowing. L3-L4: No spinal canal or neural foraminal narrowing. L4-L5: There is left subarticular narrowing due to disc bulge and facetarthropathy similar the prior study. No central spinal canal or rightneural foraminal narrowing. There is moderate left neural foraminalnarrowing improved from the prior study due to interval resolution of thepreviously identified left foraminal and extraforaminal disc extrusioncomponent. L5-S1: There is a disc bulge and facet arthropathy without spinal canal orleft neural foraminal narrowing. There is severe right neural foraminalnarrowing worse from prior study. IMPRESSION: 1. Interval resolution of the previously identified left foraminalextraforaminal disc extrusion component at L4-5. Interval progression indegree of asymmetric intervertebral disc height loss at left L4-5 andright L5-S1. Severe neural foraminal narrowing at right L5-S1 appearsworse from prior study. Maddy RUFFNI IMG MR XSPECIALTY Final Res ult * (ABNORMAL) Comprehensive metabolic panel (07/17/2025 2:02 PM EDT) SODIUM 132(L) 133 - 146 mmol/L [facility] POTASSIUM 4.3 3.3 - 5.1 mmol/L [facility] CHLORIDE 98 96 - 108 mmol/L [facility] CO2 24 21 - 35 mmol/L [facility] BUN 20(H) 6 - 19 mg/dL [facility] CREATININE 0.90 0.5 - 1.5 mg/dL [facility] GLUCOSE 173(H) 70 - 99 mg/dL [facility] ALBUMIN 4.1 3.9 - 4.8 g/dL [facility] TOTAL PROTEIN 6.7 6.5 - 8.0 g/dL [facility] CALCIUM 8.7 8.4 - 10.3 mg/dL [facility] ALKALINE PHOSPHATASE 71 39 - 117 U/L [facility] TOTAL BILIRUBIN 0.4 0.0 - 1.2 mg/dL [facility] AST 22 0 - 37 U/L [facility] ALT 15 0 - 40 U/L [facility] GLOBULIN 2.6 1 - 4.8 g/dL [facility] EGFR 91 >59 mL/min/1.7 3m2 [facility] Comment:Estimated glomerular filtration rate calculated using the CKD-EPI refit equation. ANION GAP 14 10 - 20 mmol/L [facility] Blood 07/17/2025 2:02 PM EDT 07/17/2025 2:05 PM EDT Maddy RUFFIN LAB BLOOD BKR ORDERABLES Fi nal Result [facility] [address] [place] [address] * (ABNORMAL) CBC and differential (07/17/2025 2:02 PM EDT) WBC 8.14 4.00 - 11.00 K/uL [facility] RBC 3.36(L) 4.50 - 5.90 M/uL [facility] HGB 10.8(L) 13.5 - 17.5 g/dL [facility] HCT 31.8(L) 41.0 - 53.0 % [facility] PLT 370 150 - 450 K/uL [facility] MCV 94.6 80.0 - 100.0 fL [facility] MCH 32.1(H) 27.0 - 31.0 pg [facility] MCHC 34.0 32.0 - 36.0 g/dL [facility] RDW 12.8 11.5 - 14.5 % [facility] MPV 10.0 8.4 - 12.0 fL [facility] NRBC 0.00 0.00 /100 WBCs [facility] ABSOLUTE NRBC 0.00 0.00 K/uL [facility] DIFF METHOD Auto [facility] NEUTS 87.7(H) 48.0 - 76.0 % [facility] LYMPHS 5.2(L) 18.0 - 41.0 % [facility] [facility] MONOS 5.0 4.0 - 11.0 % [facility] EOS 1.5 0.0 - 5.0 % [facility] BASOS 0.2 0.0 - 1.5 % [facility] Granulocytes, immature (%) 0.4 0.0 - 0.9 % [facility] ABSOLUTE NEUTS 7.14 1.92 - 7.60 K/uL [facility] ABSOLUTE LYMPHS 0.42(L) 0.72 - 4.10 K/uL [facility] ABSOLUTE MONOS 0.41 0.16 - 1.10 K/uL [facility] ABSOLUTE EOS 0.12 0.00 - 0.50 K/uL [facility] ABSOLUTE BASOS 0.02 0.00 - 0.15 K/uL [facility] Granulocytes, immature 0.03 0.00 - 0.09 K/uL [facility] Blood 07/17/2025 2:02 PM EDT 07/17/2025 2:05 PM EDT Maddy RUFFIN LAB BLOOD BKR ORDERABLES Fi nal Result Performing Organization Address City/[facility] Co de Phone Number [address] [address] * (ABNORMAL) Lipid panel (02/12/2023 9:32 AM EDT) HDL 77 mg/dL [facility] Comment: Interpretation <40 mg/dL: Low HDL cholesterol (major risk factor for CHD) Greater than or equal to 60 mg/dL: High HDL cholesterol ( negative risk factor for CHD) HDL - cholesterol is affected by a number of factors, e.g. smoking, excerise, hormones, sex and age. CHOLESTEROL 188 0 - 240 mg/dL [facility] TRIGLYCERIDES 93 30 - 160 mg/dL [facility] LDL 92 50 - 129 mg/dL [facility] Comment: LDL levels in terms of risk for coronary heart disease: <100 mg/dL: Optimal 100-129 mg/dL: Near or above optimal 130-159 mg/dL: Borderline high 160-189 mg/dL: High >190 mg/dL: Very High CARDIAC RISK RATIO 2.4(L) 3.4 - 5.0 C [facility] Blood 02/12/2023 9:32 AM EDT 02/12/2023 9:35 AM EDT Maddy RUFFIN LAB BLOOD BKR ORDERABLES Fi nal Result Performing Organization Address City/[facility]/ZIP Co de Phone Number [address] [address] * ENDOSCOPY, COLON (12/20/2019 9:45 AM EST) Narrative Transcriptions Brennen Middleton MD - 12/20/2019 9:45 AM EST Patient Name: Marcelo Malcolm Attending MD:: BRENNEN MIDDLETON MD Procedure Date: 12/20/2019 9:45 AM Date of : 1955 Age: 64 Admit Type: Outpatient Gender: Male Room: [place] [address] Referring MD: MEGHA VALDES MD Exam Type: Colonoscopy Indications: Screening for colorectal malignant neoplasm, Last colonoscopy 10 years ago Medications: Monitored Anesthesia Care Procedure: Informed consent was obtained from the patient after discussion of the indications, limitations,alternatives, benefits, and risks of the procedure. Risksspecifically discussed include but are not limited to medication reactions, missed lesions, bleeding, perforation, orthe need for emergent surgery. Throughout the procedure, the patient's blood pressure, pulse, end-tidal CO2, and oxygen saturations were monitored continuously. The Olympus adult variable colonoscope [id number] #5 was introduced through the anus and advanced to theterminal ileum, with identification of the appendiceal orificeand IC valve. The colonoscopy was performed without difficulty. The patient tolerated the procedure well.The quality of the bowel preparation was excellent. The quality of the bowel preparation was evaluated usingthe BBPS (Carlock Bowel Preparation Scale) with scores of: Right Colon = 3, Transverse Colon = 3 and Left Colon =3 (entire mucosa seen well with no residual staining,small fragments of stool or opaque liquid). The total BBPSscore equals 9. Complications: No immediate complications. Findings: The perianal and digital rectal examinations werenormal. The terminal ileum appeared normal. Examination of the right colon was repeated in retroflexion and again in NBI. Retroflexion was also performed in the rectum. Multiple diverticula were found in the entire colon. A 4 mm polyp was found in the descending colon. Thepolyp was sessile. The polyp was removed with a cold snare. Resection and retrieval were complete. A 5 mm polyp was found in the rectum. The polyp was sessile. The polyp was removed with a cold snare. Resection and retrieval were complete. Internal hemorrhoids were found during retroflexion.The hemorrhoids were moderate. The exam was otherwise without abnormality. Impression: - The examined portion of the ileum was normal. - Diverticulosis in the entire examined colon. - One 4 mm polyp in the descending colon, removed witha cold snare. Resected and retrieved. - One 5 mm polyp in the rectum, removed with a coldsnare. Resected and retrieved. - The examination was otherwise normal. Recommendation: - [facility] The signs and symptoms of potential delayedcomplications were discussed with the patient. Return to normal activities tomorrow. Written discharge instructionswere provided to the patient. - Await pathology results. - Repeat colonoscopy date to be determined afterpending pathology results are reviewed for surveillance basedon pathology results. Brennen Middleton BRENNEN MIDDLETON MD 12/20/2019 10:07:34 AM This report has been signed electronically. Number of Addenda: 0 Note Initiated On: 12/20/2019 9:45 AM Procedure Code(s): --- Professional --- 91256, Colonoscopy, flexible; with removal of tumor(s), polyp(s), or other lesion(s) by snare technique --- Technical --- 11364, Colonoscopy, flexible; with removal of tumor(s), polyp(s), or other lesion(s) by snare technique CPT copyright 2018 [employer]. All rights reserved. The codes documented in this report are preliminary and upon board attendant reviewmay be revised to meet current compliance requirements. Procedure Date: 12/20/2019 9:45:[address] [place] [address] [place] Megha Valdes MD GI PROCEDURE ORDERABLES Fin al Result from Last 3 Months or Most Recently Relevant to Health Maintenance Insurance [employer] PPO REPLACEMENT [employer] PPO [employer]PLACEMENT [employer] PPO REPLACEMENT [employer] [place] PPO REPLACEMENT MEDICARE POS PPO REPLACEMENT [employer] [place] [employer] PPO REPLACEMENT [employer] PPO REPLACEMENT [employer] PPO REPLACEMENT [employer] PPO REPLACEMENT Advance Directives For more information, please contact: [phone] (9AM - 5PM [facility], Wednesday-Wednesday) * Full Code (Latest Code Status on File) Date Activated Date Inactivated Comments 02/28/2025 11:04 AM Question Answer Comments Code Status Confirmed With: Patient Care Teams Storm Door Maker Relationship Specialty Start Date End Date Troy Dias DO [email or web address] PCP - General Internal Medicine 04/03/24 Additional Source Comments The information contained in this document represents components of the legal health record. It is not the complete legal health record.[facility]
--- OUTSIDE RECORDS SUMMARY | 2025-10-16 14:33 | XMS_ITS | Encounter Summary ---
Author Organization [facility] Address [address] [facility] [address] [place] [address] Phone Care Team Providers Care Land Degradation Analyst Name Role Phone Troy Dias James JIMENEZ Primary Care Provider [phone] Encounter Details Date Type Department Care Team (Late st Contact Info) Description 06/27/2025 Procedure Pass [facility], [address] [address] Social History Tobacco Use Types Packs/Day Years [...] Description 06/17/2026 11:20 AM EDT Office Visit [facility] [address] [facility] 3rd Floor, [address] [place] [address] Tyrel Cook MD [address] [place] [address], [address] [place] [address] [email or web address] documented as of this encounter Visit Diagnoses Not on filedocumented in this encounter Care Teams Land Degradation Analyst Relationship Specialty Start Date End Date Troy Dias DO [email or web address] PCP - General Internal Medicine 04/03/24 documented as of this encounter Additional Source Comments The information contained in this document represents components of the legal health record. It is not the complete legal health record.[facility]
--- OUTSIDE RECORDS SUMMARY | 2025-10-16 14:33 | XMS_ITS | Encounter Summary ---
Author Organization [facility] Address [address] [facility] [address] [place] [address] Phone Care Team Providers Care Maternity Floor Supervisor Name Role Phone Troy Dias Primary Care Provider [phone] Encounter Details Date Type Department Care Team (Late st Contact Info) Description 07/30/2025 Procedure Pass [facility], [address] [address] Social History Tobacco Use Types Packs/Day Years [...] Description 06/17/2026 11:20 AM EDT Office Visit [facility] [address] [facility] 3rd Floor, [address] [place] [address] Tyrel Cook MD [address] [place] [address], [address] [place] [address] [email or web address] documented as of this encounter Visit Diagnoses Not on filedocumented in this encounter Care Teams Maternity Floor Supervisor Relationship Specialty Start Date End Date Troy Dias DO [email or web address] PCP - General Internal Medicine 04/03/24 documented as of this encounter Additional Source Comments The information contained in this document represents components of the legal health record. It is not the complete legal health record.[facility]
--- OUTSIDE RECORDS SUMMARY | 2025-10-16 14:33 | XMS_ITS | Encounter Summary ---
Author Organization [facility] Address [address] [facility] [address] [place] [address] Phone Care Team Providers Care Sheriff'S Officer Name Role Phone Troy Dias Primary Care Provider [phone] Encounter Details Date Type Department Care Team (Late st Contact Info) Description 02/28/2025 Procedure Pass [place] Admitting Dept - Virtual Department [address] [place] [address] Social History Tobacco Use Types Packs/Day Years [...] Description 06/17/2026 11:20 AM EDT Office Visit [facility] [address] [facility] 3rd Floor, [address] [place] [address] Tyrel Cook MD [address] [place] [address], [address] [place] [address] [email or web address] documented as of this encounter Visit Diagnoses Not on filedocumented in this encounter Care Teams Sheriff'S Officer Relationship Specialty Start Date End Date Troy Dias DO [email or web address] PCP - General Internal Medicine 04/03/24 documented as of this encounter Additional Source Comments The information contained in this document represents components of the legal health record. It is not the complete legal health record.[facility]
--- OUTSIDE RECORDS SUMMARY | 2025-10-16 14:33 | XMS_ITS | Encounter Summary ---
Author Organization [facility] Address [address] [facility] [address] [place] [address] Phone Care Team Providers Care Therapeutic Case Manager Name Role Phone Patrick Arellano MD Unavailable [phone] Deep Fierro MD Unavailable [phone] Patrick Arellano MD Primary Care Provider [phone] Troy Dias DO Primary Care Provider [phone] Encounter Details Date Type Department Care Team (Late st Contact Info) Description 11/23/2021 Transcribe Orders Virtual Department [address] [place] [address] Brian Burns MD [address] [place], [place] [phone] [email or web address] Runny nose (Primary Dx) Social History Tobacco Use Types Packs/Day Years Used Date Smoking Tobacco: Never Smokeless Tobacco: Never Alcohol Use Standard Drinks/Week Comments Yes 28 (1 standard drink = 0.6 oz pu re alcohol) 4 beers Sex and Gender Information Value Date Recorded Sex Assigned at Not on file Legal Sex Male 9:58 PM EDT Gender Identity Not on file Sexual Orientation Not on file documented as of this encounter Plan of Treatment Upcoming Encounters Date Type Department Care Team (Late st Contact Info) Description 06/17/2026 11:20 AM EDT Office Visit [facility] [address] [place] [address] 3rd Floor, [address] [place] [address] Tyrel Cook MD [address] [facility], [address] [place] [address] [email or web address] documented as of this encounter Visit Diagnoses Diagnosis Runny nose- Primary Other diseases of nasal cavity and sinuses documented in this encounter Additional Health Concerns Infection Onset Date Last Indicated Resolved Time CoV-Risk 11/23/2021 11/23/2021 12/03/2021 1:23 AM EST documented as of this encounter Care Teams Therapeutic Case Manager Relationship Specialty Start Date End Date Patrick Arellano MD [address] [place] [address] [email or web address] PCP - General 11/25/17 04/02/24 Troy Dias DO [address] [place] [address] [email or web address] PCP - General Internal Medicine 04/03/24 Patrick Arellano MD [address] [place] [address] [email or web address] Historical LMR Provider 09/12/17 11/29/21 Deep Fierro MD [address] [place] [address] Historical LMR Provider 09/12/17 documented as of this encounter Additional Source Comments The information contained in this document represents components of the legal health record. It is not the complete legal health record.[facility]
--- OUTSIDE RECORDS SUMMARY | 2025-10-16 14:33 | XMS_ITS | Encounter Summary ---
Author Organization [facility] Address [address] [facility] [address] [place] [address] Phone Care Team Providers Care Security Threat Analyst Name Role Phone Troy Dias Primary Care Provider [phone] Encounter Details Date Type Department Care Team (Late st Contact Info) Description 06/27/2025 Procedure Pass [facility], Ct Scan - [address] [address] Social History Tobacco Use Types Packs/Day Years [...] Description 06/17/2026 11:20 AM EDT Office Visit [facility] [address] [facility] 3rd Floor, [address] [place] [address] Tyrel Cook MD [address] [facility] [address] [place] [address] [email or web address] documented as of this encounter Visit Diagnoses Not on filedocumented in this encounter Care Teams Security Threat Analyst Relationship Specialty Start Date End Date Troy Dias DO [email or web address] PCP - General Internal Medicine 04/03/24 documented as of this encounter Additional Source Comments The information contained in this document represents components of the legal health record. It is not the complete legal health record.[facility]
--- OUTSIDE RECORDS SUMMARY | 2025-10-16 14:33 | XMS_ITS | Encounter Summary ---
Author Organization [facility] Address [address] [facility] [address] [place] [address] Phone Care Team Providers Care Cosmetician Name Role Phone KareniggyTroy DO Primary Care Provider [phone] Reason for Referral * MRI/CAT Scan - Closed Specialty Diagnoses / Procedures Referred By Contac t Referred To Contact Radiology Diagnoses Contusion of abdominal wall, initial encounter Procedures MRI Pelvis (GI/) CHG MRI, PELVIS, COMBO Maddy Singer PA [address] [facility] [place] [address] [place] [address] Phone: tel: fax: Referral ID Status Reason Start Date Expiration Date Visits Re quested Visits Authorized [id number] Closed 07/25/2025 09/23/2025 1 1 * MRI/CAT Scan - Closed Specialty Diagnoses / Procedures Referred By Contac t Referred To Contact Radiology Diagnoses Contusion of abdominal wall, initial encounter Procedures MRI Abdomen CHG MRI, ABDOMEN, COMBO Maddy Singer PA [address] [facility] [place] [address] [place] [address] Phone: tel: fax: Referral ID Status Reason Start Date Expiration Date Visits Re quested Visits Authorized [id number] Closed 07/25/2025 09/23/2025 1 1 Encounter Details Date Type Department Care Team (Latest Contact Info) Description 07/30/2025 Transcribe Orders Virtual Department 30 [place] [address] Maddy Singer PA [address] [place] [address] [place] [address] Contusion of abdominal wall, initial encounter (Primary Dx) Social History Tobacco Use Types [...] Description 06/17/2026 11:20 AM EDT Office Visit [facility] [address] [place] [address] 3rd Floor, [address] [place] [address] Tyrel Cook MD [address] [facility] [address] [place] [address] [email or web address] documented as of this encounter Results * MRI ABDOMEN WITH AND WITHOUT CONTRAST (08/19/2025 4:13 PM EDT) MGB IMG RECOMMENDATION COMMENT 6 mm pancreatic tail cyst; Differential: 6 mm small sidebranch IPMN [facility] Anatomical Region Laterality Modality Abdomen Magnetic Resonan ce 08/21/2025 3:10 PM EDT Impressions 08/21/2025 3:21 PM EDT 1. No suspicious liver lesions. 2. 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 Follow-up MRI recommended in 2 years to ensure stability. Narrative 08/21/2025 3:21 PM EDT MRI ABDOMEN WITH AND WITHOUT CONTRAST Referring clinician's provided indication for this examination in [facility]: Outside Radiology Order; hematoma left inguinal TECHNIQUE: [...] RUFFIN IMG MR PELVIS Final Resul t documented in this encounter Visit Diagnoses Diagnosis Contusion of abdominal wall, initial encounter- Primary Contusion of abdominal wall, initial encounter Contusion of abdominal wall, initial encounter documented in this encounter Care Teams Cosmetician Relationship Specialty Start Date End Date Troy Dias DO [email or web address] PCP - General Internal Medicine 04/03/24 documented as of this encounter Additional Source Comments The information contained in this document represents components of the legal health record. It is not the complete legal health record.[facility]
--- OUTSIDE RECORDS SUMMARY | 2025-10-16 14:34 | XMS_ITS | Encounter Summary ---
Author Organization [facility] Address [address] [facility] [address] [place] [address] Phone Care Team Providers Care Aquarium Specialist Name Role Phone Patrick Arellano MD Unavailable [phone] Deep Fierro MD Unavailable [phone] Patrick Arellano MD Primary Care Provider [phone] Troy Dias DO Primary Care Provider [phone] Encounter Details Date Type Department Care Team (Late st Contact Info) Description 12/20/2019 Procedure Pass [facility] Endoscopy Admitting Dept Virtual Department [address] [place] [address] Social History Tobacco Use Types Packs/Day Years [...] Description 06/17/2026 11:20 AM EDT Office Visit [facility] [address] [place] [address] 3rd Floor, [address] [place] [address] Tyrel Cook MD [address] [facility], [address] [place] [address] [email or web address] documented as of this encounter Visit Diagnoses Not on filedocumented in this encounter Additional Health Concerns Infection Onset Date Last Indicated Resolved Time CoV-Risk 11/23/2021 11/23/2021 12/03/2021 1:23 AM EST documented as of this encounter Care Teams Aquarium Specialist Relationship Specialty Start Date End Date Patrick Arellano MD [address] [place] [address] [email or web address] PCP - General 11/25/17 04/02/24 Troy Dias DO [address] [place] [address] [email or web address] PCP - General Internal Medicine 04/03/24 Patrick Arellano MD [address] [place] [address] [email or web address] Historical LMR Provider 09/12/17 11/29/21 Deep Fierro MD [address] [place] [address] Historical LMR Provider 09/12/17 documented as of this encounter Additional Source Comments The information contained in this document represents components of the legal health record. It is not the complete legal health record.[facility]
== END 2025-10-16 11:03 | disposition home or self-care (01) ==
LOC: HO.MANLDS 11:02
PROVIDERS: Visit Provider Internal Medicine
DX: Z13.21 Encounter for screening for nutritional disorder (principal); Z13.0 Encounter for screening for diseases of the blood and blood-forming organs and certain disorders involving the immune mechanism; D64.89 Other specified anemias; R53.82 Chronic fatigue, unspecified
CPT/HCPCS: 36415; 82306; 82607; 82728; 83540; 84403; 84443; 85025; 85652

== ENCOUNTER 2025-10-30 10:47 | Outpatient (REF) | payer MEDICARE, SELFPAY ==
[2025-10-30 14:52] LABS: Magnesium 2.4 mg/dL (1.6-2.6)
[2025-10-30 14:53] LABS: Thyroid Stimulating Hormone 1.63 uIU/mL (0.32-4.0)
== END 2025-10-30 10:48 | disposition home or self-care (01) ==
LOC: HO.MANLDS 10:47
PROVIDERS: Visit Provider Internal Medicine
DX: R53.82 Chronic fatigue, unspecified (principal)
CPT/HCPCS: 36415; 83735; 84443

== ENCOUNTER 2025-11-12 09:08 | Outpatient (REF) | payer MEDICARE, SELFPAY ==
--- OUTSIDE RECORDS SUMMARY | 2025-11-09 23:59 | XMS_ITS | Continuity of Care Document ---
Author Organization [facility] Address [address] [place] [address]- Care Team Providers Care Solar Installation Technician Name Role Phone Troy Dias DO Primary Care Physician En[place] [facility] [place](s): 10/10/25 - 11/09/25 [facility] [address] [place] [address]- Encounter Type: Triage Allergies, Adverse Reactions, Alerts No Known Allergies Medications amLODIPine 5 mg oral tablet 1 tablet = 5 mg, By Mouth, Daily, # 30 tablet, 0 Refills, Maintenance, 05/17/24 1:15:00 PM EDT, Tablet, Partial fill upon patient request if the prescription is for a schedule II opioid drug. Start Date: 05/17/24 Status: Ordered Medication Dispense Status: Completed Quantity: 30.0 Unit: tablet Total Allowed Fills: 1 Fills Dispensed: 0 barium sulfate 0.1% oral suspension 1 bottle, By Mouth, 2 times a day, shake well prior to drinking drink first bottle approximately [address] scan drink second bottle [address] scan, # 2 each, 0 Refills, Maintenance, 05/23/24 10:03:00 PM EDT, Partial fill upon patient request if the prescription is for a schedule II opioid drug. Start Date: 05/23/24 Status: Ordered Medication Dispense Status: Completed Quantity: 2.0 Unit: each Total Allowed Fills: 1 Fills Dispensed: 0 gabapentin 100 mg oral capsule 100 mg, 1, capsule, By Mouth, Daily at bedtime, # 30 capsule, Refills 0, Maintenance, 05/17/24 1:15:00 PM EDT, Partial fill upon patient request if the prescription is for a schedule II opioid drug. Start Date: 05/17/24 Status: Ordered Medication Dispense Status: Completed Quantity: 30.0 Unit: capsule Total Allowed Fills: 1 Fills Dispensed: 0 hydrALAZINE 0 Refills, Maintenance, 08/03/24 3:34:00 PM EDT, Partial fill upon patient request if the prescription is for a schedule II opioid drug. Start Date: 08/03/24 Status: Ordered Medication Dispense Status: Completed Total Allowed Fills: 1 Fills Dispensed: 0 ICaps AREDS 2 oral capsule 1 capsule, By Mouth, 2 times a day, # 60 capsule, 0 Refills, Maintenance, 10/12/25 8:08:00 AM EST, Capsule, Partial fill upon patient request if the prescription is for a schedule II opioid drug. Start Date: 10/12/25 Status: Ordered Medication Dispense Status: Completed Quantity: 60.0 Unit: capsule Total Allowed Fills: 1 Fills Dispensed: 0 lisinopril 40 mg oral tablet 1 tablet = 40 mg, By Mouth, Daily, # 30 tablet, 0 Refills, Maintenance, 05/17/24 1:15:00 PM EDT, Tablet, Partial fill upon patient request if the prescription is for a schedule II opioid drug. Start Date: 05/17/24 Status: Ordered Medication Dispense Status: Completed Quantity: 30.0 Unit: tablet Total Allowed Fills: 1 Fills Dispensed: 0 traMADol 50 mg oral tablet 1 tablet = 50 mg, By Mouth, Every 12 hours, PRN as needed for pain, 0 Refills, Maintenance, :15:00 PM EDT, Tablet, Partial fill upon patient request if the prescription is for a schedule II opioid drug. Start Date: 05/17/24 Status: Ordered Medication Dispense Status: Completed Total Allowed Fills: 1 Fills Dispensed: 0 Social History Social History Type Response Smoking Status Never (less than 100 in lifetime) entered on: 05/17/24 Sex Sex Representation Male (finding) Patient Care team information Care Team Personnel Name: Troy Dias DO Position: Reference Physician Member Role: PCP Address: [address] [place] [address] Internal Medicine [place], [place] [address] Telecom: Care Team Related Persons Name: RAH JOHNSON Insurance Providers Guarantor name: [facility] Information #: 1 Payer: [employer] MED[employer] ADV PPO Payer Identifier: MERARI Member Number: [id number] Group Number: [id number] Subscriber Identifier: NA Relationship to Subscriber: self Coverage Type: Medicare PPO Coverage Verification Date: MERARI Telecom: MERARI Address:
--- OUTSIDE RECORDS SUMMARY | 2025-11-12 10:04 | XMS_ITS | Encounter Summary ---
Author Organization [facility] Address [address] [place] [address] Phone Care Team Providers Care Indexer Name Role Phone Troy Dias Primary Care Provider [phone] Encounter Details Date Type Department Care Team (Late st Contact Info) Description 06/27/2025 Procedure Pass [facility], Ct Scan - [facility] [address] [place] [address] Social History Tobacco Use Types Packs/Day Years [...] Description 06/17/2026 11:20 AM EDT Office Visit [facility] [address] [place] [address] 3rd Floor, [address] [place] [address] Tyrel Cook MD [address] [place] [address], [address] [place] [address] [email or web address] documented as of this encounter Visit Diagnoses Not on filedocumented in this encounter Care Teams Indexer Relationship Specialty Start Date End Date Troy Dias DO [email or web address] PCP - General Internal Medicine 04/03/24 documented as of this encounter Additional Source Comments The information contained in this document represents components of the legal health record. It is not the complete legal health record.[facility]
--- OUTSIDE RECORDS SUMMARY | 2025-11-12 10:04 | XMS_ITS | Encounter Summary ---
Author Organization [facility] Address [address] [facility] [address] [place] [address] Phone Care Team Providers Care Meter Maintenance Person Name Role Phone Troy Dias Primary Care Provider [phone] Encounter Details Date Type Department Care Team (Late st Contact Info) Description 02/28/2025 Procedure Pass [place] Admitting Dept - Virtual Department 30 [place] [address] Social History Tobacco Use Types Packs/Day Years [...] Description 06/17/2026 11:20 AM EDT Office Visit [facility] [address] [place] [address] 3rd Floor, [address] [place] [address] Tyrel Cook MD [address] [place] [address], [address] [place] [address] [email or web address] documented as of this encounter Visit Diagnoses Not on filedocumented in this encounter Care Teams Meter Maintenance Person Relationship Specialty Start Date End Date Troy Dias DO [email or web address] PCP - General Internal Medicine 04/03/24 documented as of this encounter Additional Source Comments The information contained in this document represents components of the legal health record. It is not the complete legal health record.[facility]
--- OUTSIDE RECORDS SUMMARY | 2025-11-12 10:04 | XMS_ITS | Encounter Summary ---
Author Organization [facility] Address [address] [facility] [address] [place] [address] Phone Care Team Providers Care Patient Support Representative Name Role Phone KarenTroy parkinson James JIMENEZ Primary Care Provider [phone] Encounter Details Date Type Department Care Team (Late st Contact Info) Description 07/30/2025 Procedure Pass [facility], [facility] [address] [place] [address] Social History Tobacco Use Types Packs/Day Years [...] Description 06/17/2026 11:20 AM EDT Office Visit [facility] [address] [place] [address] 3rd Floor, [address] [place] [address] Tyrel Cook MD [address] [place] [address], [address] [place] [address] [email or web address] documented as of this encounter Visit Diagnoses Not on filedocumented in this encounter Care Teams Patient Support Representative Relationship Specialty Start Date End Date Troy Dias DO [email or web address] PCP - General Internal Medicine 04/03/24 documented as of this encounter Additional Source Comments The information contained in this document represents components of the legal health record. It is not the complete legal health record.[facility]
--- OUTSIDE RECORDS SUMMARY | 2025-11-12 10:04 | XMS_ITS | Encounter Summary ---
Author Organization [facility] Address [address] [facility] [address] [place] [address] Phone Care Team Providers Care Biometric Fingerprinting Technician Name Role Phone KareniggyTroy DO Primary Care Provider [phone] Reason for Referral * MRI/CAT Scan - Closed Specialty Diagnoses / Procedures Referred By Contac t Referred To Contact Radiology Diagnoses Contusion of abdominal wall, initial encounter Procedures MRI Pelvis (GI/) CHG MRI, PELVIS, COMBO Maddy Singer PA [address] [facility] [place] [address] [place] [address] Phone: tel: fax: Referral ID Status Reason Start Date Expiration Date Visits Re quested Visits Authorized [id number] Closed 07/25/2025 09/23/2025 1 1 * MRI/CAT Scan - Closed Specialty Diagnoses / Procedures Referred By Contac t Referred To Contact Radiology Diagnoses Contusion of abdominal wall, initial encounter Procedures MRI Abdomen CHG MRI, ABDOMEN, COMBO Maddy Singer PA [address] [facility] [place] [address] [place] [address] Phone: tel: fax: Referral ID Status Reason Start Date Expiration Date Visits Re quested Visits Authorized [id number] Closed 07/25/2025 09/23/2025 1 1 Encounter Details Date Type Department Care Team (Latest Contact Info) Description 07/30/2025 Transcribe Orders Virtual Department 30 [place] [address] Maddy Singer PA [address] [place] [address] [place] [address] Contusion of abdominal wall, initial encounter (Primary [...] Description 06/17/2026 11:20 AM EDT Office Visit [facility] [address] [place] [address] 3rd [facility], [address] [place] [address] Tyrel Cook MD [address] [place] [address] [email or web address] documented as of this encounter Results * MRI ABDOMEN WITH AND WITHOUT CONTRAST (08/19/2025 4:13 PM EDT) MGB IMG RECOMMENDATION COMMENT 6 mm pancreatic tail cyst; Differential: 6 mm small sidebranch [facility] Anatomical Region Laterality Modality Abdomen Magnetic Resonan ce 08/21/2025 3:10 PM EDT Impressions 08/21/2025 3:21 PM EDT 1. No suspicious liver lesions. 2. 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 Follow-up MRI recommended in 2 years to ensure stability. Narrative 08/21/2025 3:21 PM EDT MRI ABDOMEN WITH AND WITHOUT CONTRAST Referring clinician's provided indication for this examination in [facility]: Outside Radiology Order; hematoma left inguinal [...] clinician's provided indication for this examination in [facility]:Outside Radiology Order; hematoma left inguinal TECHNIQUE: Multiplanar [...] clinician's provided indication for this examination in [facility]:Outside Radiology Order; hematoma left inguinal TECHNIQUE: Multiplanar [...] encounter documented in this encounter Care Teams Biometric Fingerprinting Technician Relationship Specialty Start Date End Date Troy Dias DO [email or web address] PCP - General Internal Medicine 04/03/24 documented as of this encounter Additional Source Comments The information contained in this document represents components of the legal health record. It is not the complete legal health record.[facility]
--- OUTSIDE RECORDS SUMMARY | 2025-11-12 10:04 | XMS_ITS | Clinical Summary ---
Author Organization [facility] Address [address] [place] [address] Phone Care Team Providers Care Photovoltaic Testing Technician Name Role Phone Troy Dias Primary Care Provider [phone] Allergies Active Allergy Reactions Criticality Noted Date [...] Description 09/11/2025 2:00 PM EDT Office Visit [facility] [address] [place] [address] Sweetie Hammond MD Right groin pain (Primary Dx) 08/19/2025 1:28 PM EDT - 08/19/2025 11:59 PM EDT Hospital Encounter [address] [address] Maddy Singer PA Discharge Disposition: Home or Self Care 07/30/2025 Procedure Pass [address] [address] from Last 3 Months Immunizations Immunization Administration [...] Description 06/17/2026 11:20 AM EDT Office Visit [facility] [address] [place] [address] 3rd Floor, [address] [place] [address] Brennen Cook MD [address] [place] [address], [address] [place] [address] [email or web address] Health Maintenance Due Date Last Done Comments [...] this topic Medical Devices Implanted Type Area Mushroom Laborer Device Identifier Shelf Expiration Date Model / Serial / Lot Graft Mesh 10.5cm 16cm 3dmax Polypropylene Monofilament Patch Laparoscopy Hernia Repair Right - [id number] Implanted:Qty: 1 on 02/28/2025 by Sweetie Hammond MD at [facility] STANDARD Right: Groin [employer] [id number] 07/19/2029 [id number] / / [id number] Graft Mesh 10.5cm 16cm 3dmax Polypropylene Monofilament Patch Laparoscopy Hernia Repair Left - [id number] Implanted:Qty: 1 on 02/28/2025 by Sweetie Hammond MD at [facility] Left: Groin [employer] [id number] 07/19/2029 [id number] / / [id number] Procedures Procedure Name Priority Date/Time Associated Diagnosis Comments MRI ABDOMEN WITH AND WITHOUT CONTRAST Routine 08/19/2025 4:13 PM EDT Contusion of abdominal wall, initial encounter COMPREHENSIVE METABOLIC PANEL (CMP) Routine 07/17/2025 2:02 [...] cyst; Differential: 6 mm small sidebranch [facility] Anatomical Region Laterality Modality Abdomen Magnetic Resonan [...] IMG MR ABDOMEN Final Resul t * (ABNORMAL) Comprehensive metabolic panel (07/17/2025 2:02 PM EDT) SODIUM 132(L) 133 - 146 mmol/L [facility] POTASSIUM 4.3 3.3 - 5.1 mmol/L [facility] CHLORIDE 98 96 - 108 mmol/L [facility] CO2 24 21 - 35 mmol/L [facility] BUN 20(H) 6 - 19 mg/dL [facility] CREATININE 0.90 0.5 - 1.5 mg/dL [facility] GLUCOSE 173(H) 70 - 99 mg/dL [facility] ALBUMIN 4.1 3.9 - 4.8 g/dL [facility] TOTAL PROTEIN 6.7 6.5 - 8.0 g/dL [facility] CALCIUM 8.7 8.4 - 10.3 mg/dL [facility] ALKALINE PHOSPHATASE 71 39 - 117 U/L [facility] TOTAL BILIRUBIN 0.4 0.0 - 1.2 mg/dL [facility] AST 22 0 - 37 U/L [facility] ALT 15 0 - 40 U/L [facility] GLOBULIN 2.6 1 - 4.8 g/dL [facility] EGFR 91 >59 mL/min/1.7 3m2 [facility] Comment:Estimated glomerular filtration rate calculated using the CKD-EPI refit equation. ANION GAP 14 10 - 20 mmol/L [facility] Blood 07/17/2025 2:02 PM EDT 07/17/2025 2:05 PM EDT Maddy RUFFIN LAB BLOOD BKR ORDERABLES Fi nal Result Performing Organization Address [facility] Co de Phone Number [address] [address] * (ABNORMAL) Lipid panel (02/12/2023 9:32 AM EDT) HDL 77 mg/dL [facility] Comment: Interpretation <40 mg/dL: Low HDL cholesterol (major risk factor for CHD) Greater than or equal to 60 mg/dL: High HDL cholesterol ( negative risk factor for CHD) HDL - cholesterol is affected by a number of factors, e.g. smoking, excerise, hormones, sex and age. CHOLESTEROL 188 0 - 240 mg/dL [facility] TRIGLYCERIDES 93 30 - 160 mg/dL [facility] LDL 92 50 - 129 mg/dL [facility] Comment: LDL levels in terms of risk for coronary heart disease: <100 mg/dL: Optimal 100-129 mg/dL: Near or above optimal 130-159 mg/dL: Borderline high 160-189 mg/dL: High >190 mg/dL: Very High CARDIAC RISK RATIO 2.4(L) 3.4 - 5.0 C [facility] Blood 02/12/2023 9:32 AM EDT 02/12/2023 9:35 AM EDT Maddy RUFFIN LAB BLOOD BKR ORDERABLES Fi nal Result Performing Organization Address [facility] Co de Phone Number [address] [address] * ENDOSCOPY, COLON (12/20/2019 9:45 AM EST) Narrative Transcriptions Brennen Middleton MD - 12/20/2019 9:45 AM EST Patient Name: Marcelo Wolfemax Attending MD:: BRENNEN MIDDLETON MD Procedure Date: 12/20/2019 9:45 AM Date of : 1955 Age: 64 Admit Type: Outpatient Gender: Male Room: [place] [address] Referring MD: MEGHA VALDES MD Exam Type: [...] monitored continuously. The Olympus adult variable colonoscope [id number] #5 was introduced through the anus and advanced to theterminal ileum, with identification of the appendiceal orificeand IC valve. The colonoscopy was performed without difficulty. The patient tolerated the procedure well.The quality of the bowel preparation was excellent. The quality of the bowel preparation was evaluated usingthe BBPS (Sentinel Bowel Preparation Scale) with scores of: Right [...] - Patient has a contact number available foremergenes. The signs and symptoms of potential delayedcomplications [...] 9:45 AM Procedure Code(s): --- Professional --- 01792, Colonoscopy, flexible; with removal of tumor(s), polyp(s), or other lesion(s) by snare technique --- Technical --- 31793, Colonoscopy, flexible; with removal of tumor(s), polyp(s), or other lesion(s) by snare technique CPT copyright 2018 [employer]. All rights reserved. The codes documented in this report are preliminary and upon certified coder reviewmay be revised to meet current compliance requirements. Procedure Date: 12/20/2019 9:45:[address] [place] [address] Megha Valdes MD GI PROCEDURE ORDERABLES Fin al Result from Last 3 Months or Most Recently Relevant to Health Maintenance Insurance [employer] POS PPO REPLACEMENT [employer] PPO REPLACEMENT [employer] PPO REPLACEMENT [facility] MEDICARE POS PPO REPLACEMENT MEDICARE POS PPO REPLACEMENT [facility] MEDICARE POS PPO REPLACEMENT [facility] MEDICARE POS PPO REPLACEMENT [employer] POS PPO REPLACEMENT [employer] PPO REPLACEMENT Advance Directives For more information, please contact: [phone] (9AM - 5PM [facility], Wednesday-Wednesday) * Full Code (Latest Code Status on File) Date Activated Date Inactivated Comments 02/28/2025 11:04 AM Question Answer Comments Code Status Confirmed With: Patient Care Teams Photovoltaic Testing Technician Relationship Specialty Start Date End Date Troy Dias DO [email or web address] PCP - General Internal Medicine 04/03/24 Additional Source Comments The information contained in this document represents components of the legal health record. It is not the complete legal health record.[facility]
--- OUTSIDE RECORDS SUMMARY | 2025-11-12 10:04 | XMS_ITS | Encounter Summary ---
Author Organization [facility] Address [address] [facility] [address] [place] [address] Phone Care Team Providers Care Manager Progressive Care Name Role Phone KarenTroy parkinson James JIMENEZ Primary Care Provider [phone] Encounter Details Date Type Department Care Team (Late st Contact Info) Description 07/30/2025 Procedure Pass [facility], [facility] [address] [place] [address] Social History Tobacco Use Types Packs/Day Years [...] Description 06/17/2026 11:20 AM EDT Office Visit [facility] [address] [place] [address] 3rd Floor, [address] [place] [address] Tyrel Cook MD [address] [place] [address], [address] [place] [address] [email or web address] documented as of this encounter Visit Diagnoses Not on filedocumented in this encounter Care Teams Manager Progressive Care Relationship Specialty Start Date End Date Troy Dias DO [email or web address] PCP - General Internal Medicine 04/03/24 documented as of this encounter Additional Source Comments The information contained in this document represents components of the legal health record. It is not the complete legal health record.[facility]
--- OUTSIDE RECORDS SUMMARY | 2025-11-12 10:04 | XMS_ITS | Encounter Summary ---
Author Organization [facility] Address [address] [facility] [address] [place] [address] Phone Care Team Providers Care Laborer Stores Name Role Phone Patrick Arellano MD Unavailable [phone] Deep Fierro MD Unavailable [phone] Patrick Arellano MD Primary Care Provider [phone] Troy Dias DO Primary Care Provider [phone] Encounter Details Date Type Department Care Team (Late st Contact Info) Description 12/20/2019 Procedure Pass [facility] Endoscopy Admitting Dept Virtual Department [address] [place] [address] Social History Tobacco Use Types Packs/Day Years [...] Description 06/17/2026 11:20 AM EDT Office Visit [facility] [address] [place] [address] 3rd Floor, [address] [place] [address] Tyrel Cook MD [address] [facility], [address] [address] [email or web address] documented as of this encounter Visit Diagnoses Not on filedocumented in this encounter Additional Health Concerns Infection Onset Date Last Indicated Resolved Time CoV-Risk 11/23/2021 11/23/2021 12/03/2021 1:23 AM EST documented as of this encounter Care Teams Laborer Stores Relationship Specialty Start Date End Date Patrick Arellano MD [address] [place] [address] [email or web address] PCP - General 11/25/17 04/02/24 Troy Dias DO [address] [place] [address] [email or web address] PCP - General Internal Medicine 04/03/24 Patrick Arellano MD [address] [place] [address] [email or web address] Historical LMR Provider 09/12/17 11/29/21 Deep Fierro MD [address] [place] [address] Historical LMR Provider 09/12/17 documented as of this encounter Additional Source Comments The information contained in this document represents components of the legal health record. It is not the complete legal health record.[facility]
--- OUTSIDE RECORDS SUMMARY | 2025-11-12 10:04 | XMS_ITS | Encounter Summary ---
Author Organization [facility] Address [address] [facility] [address] [place] [address] Phone Care Team Providers Care Parking Cashier Name Role Phone KarenTroy parkinson James JIMENEZ Primary Care Provider [phone] Encounter Details Date Type Department Care Team (Late st Contact Info) Description 06/27/2025 Procedure Pass [facility], [facility] [address] [place] [address] Social History Tobacco Use Types Packs/Day Years [...] Description 06/17/2026 11:20 AM EDT Office Visit [facility] [address] [place] [address] 3rd Floor, [address] [place] [address] Tyrel Cook MD [address] [place] [address], [address] [place] [address] [email or web address] documented as of this encounter Visit Diagnoses Not on filedocumented in this encounter Care Teams Parking Cashier Relationship Specialty Start Date End Date Troy Dias DO [email or web address] PCP - General Internal Medicine 04/03/24 documented as of this encounter Additional Source Comments The information contained in this document represents components of the legal health record. It is not the complete legal health record.[facility]
--- OUTSIDE RECORDS SUMMARY | 2025-11-12 10:04 | XMS_ITS | Encounter Summary ---
Author Organization [facility] Address [address] [facility] [address] [place] [address] Phone Care Team Providers Care Packer Name Role Phone Patrick Arellano MD Unavailable [phone] Deep Fierro MD Unavailable [phone] Patrick Arellano MD Primary Care Provider [phone] Troy Dias DO Primary Care Provider [phone] Encounter Details Date Type Department Care Team (Late st Contact Info) Description 11/23/2021 Transcribe Orders Virtual Department [address] [place], [place] [phone] Brian Burns MD [address] [place] [address] [phone] [email or web address] Runny nose (Primary Dx) Social History Tobacco [...] Description 06/17/2026 11:20 AM EDT Office Visit [facility] [address] [place] [address] [address] Floor, [address] [place] [address] Tyrel Cook MD [address] [facility], [address] [place] [address] [email or web address] documented as of this encounter Visit Diagnoses Diagnosis Runny nose- Primary Other diseases of nasal cavity and sinuses documented in this encounter Additional Health Concerns Infection Onset Date Last Indicated Resolved Time CoV-Risk 11/23/2021 11/23/2021 12/03/2021 1:23 AM EST documented as of this encounter Care Teams Packer Relationship Specialty Start Date End Date Patrick Arellano MD [address] [place] [phone] [email or web address] PCP - General 11/25/17 04/02/24 Troy Dias DO [address] [place] [phone] [email or web address] PCP - General Internal Medicine 04/03/24 Patrick Arellano MD [address] [place] [phone] [email or web address] Historical LMR Provider 09/12/17 11/29/21 Deep Fierro MD [address] [place] [phone] Historical LMR Provider 09/12/17 documented as of this encounter Additional Source Comments The information contained in this document represents components of the legal health record. It is not the complete legal health record.[facility]
== END 2025-11-12 09:09 | disposition home or self-care (01) ==
LOC: HO.MANLDS 09:08
PROVIDERS: Visit Provider Internal Medicine
DX: R53.82 Chronic fatigue, unspecified (principal)
CPT/HCPCS: 36415; 84403